=== PATIENT | male | born 1930 | race Caucasian/White ===

== ENCOUNTER 2016-12-01 15:25 | Observation (INO) | payer MEDICARE, OTHER ==
--- NOTE | ~2016-12-01 | DS ---
Discharge Summary [facility] [address] [place]. [address] NAME: LI CLINE : 29 STATUS : DIS Earlene PAT#: [id number] AGE: 86 ADM/REG DATE : 12/01/16 MR#: [id number] REPORT SERV DATE: 12/03/16 DICTATED BY: FRANCK ZHAO DATE: 12/02/16 REPORT STATUS : Draft TRANSCRIBED BY: MODL DATE: 12/02/16 ADMISSION DATE: 12/01/2016 DISCHARGE DATE: 12/02/2016 DISCHARGE DIAGNOSES: 1. Community-acquired pneumonia. 2. Unintentional weight loss related to poor appetite. 3. Hypertension. 4. Prostate cancer. 5. Gastroesophageal reflux disease. 6. Remote history of smoking. CONSULTANTS: None. PROCEDURES: None. HOSPITAL COURSE: This is an 86-year-old gentleman who was directly admitted to our facility after a failed outpatient therapy of community-acquired pneumonia. For details, please refer to my own H and P. Although it appears the patient has been suffering quite a bit as an outpatient, by the time, the patient was admitted to the hospital, it appears that the patient was actually already getting better with the antibiotics that he has been taking as an outpatient. The patient was on room air, and at the patient's initial admission, white blood cell count was only 12,000. The patient also had stable vital signs and no evidence of sepsis. The patient was simply monitored overnight, and overnight, the patient's white blood cell count had normalized to 8000. The patient will remain on room air and really did not even require much breathing treatments. The patient is thus being discharged to home with a course of Levaquin as well as albuterol inhaler. Also, at admission, the patient reported of unintentional weight loss over the past two months. This was particularly concerning for potential cancer and CT of the chest, abdomen, and pelvis was performed. CT of the chest revealed a right lower lobe pneumonia and it also showed a discrete subpleural noncalcified nodules that were likely inflammatory in nature. Otherwise, the patient did not have any obvious lesions concerning for malignancy. The patient will need to follow up with his PCP and have a repeat CT of the chest a few weeks to months down the road after the right lower lobe infiltrate have cleared for further evaluation. Otherwise, the patient remained hemodynamically stable throughout the hospital stay and there was no other obvious complication. DISCHARGE DISPOSITION: Home. DISCHARGE MEDICATIONS: 1. Levaquin 750 mg p.o. daily x3 additional days. 2. Albuterol inhaler q.4 hours p.r.n. 3. Otherwise, no medication changes. Discharge Summary [address] [address] NAME: LI CLINE : 29 STATUS : DIS Earlene PAT#: [id number] AGE: 86 ADM/REG DATE : 12/01/16 MR#: [id number] REPORT SERV DATE: 12/03/16 DICTATED BY: FRANCK ZHAO DATE: 12/02/16 REPORT STATUS : Draft TRANSCRIBED BY: YANIRA DATE: 12/02/16 FOLLOWUP: Please follow up with PCP in the next one to two weeks. A total of 25 minutes spent in coordinating this patient's discharge today. DICTATED BY: MD CURT Leblanc/YANIRA Franck Zhao MD / [id number] CC: MD Ying Leblanc M.D.
--- NOTE | ~2016-12-01 | HP ---
History And Physical [place] [id number] [facility] [place]. [address] NAME: LI CLINE : 29 STATUS : ADM IN [facility]#: [id number] AGE: 86 ADM/REG DATE : 12/01/16 MR#: [id number] REPORT SERV DATE: 12/01/16 DICTATED BY: FRANCK ZHAO DATE: 12/01/16 REPORT STATUS : Draft TRANSCRIBED BY: MODL DATE: 12/01/16 DATE OF ADMISSION: 12/01/2016 CHIEF COMPLAINT: Shortness of breath. HISTORY OF PRESENT ILLNESS: This is an 86-year-old gentleman with history of hypertension, GERD, and prostate cancer presenting with a shortness of breath. The patient reports that he apparently got sick about 10 days ago after having worked in the garden. The patient thought it was related to pollens, and he did see a physician at a walk-in clinic, who agreed and treated him symptomatically. Over the past week or so, the patient unfortunately continued to get sick with shortness of breath. The patient was seen by his PCP's nurse practitioner, who prescribed him doxycycline. The patient reports that he unfortunately continued to decline on p.o. doxycycline. The patient had episodic significant shortness of breath and had limited range of ambulation due to the shortness of breath. The patient also reports that he has had subjective fevers with chills and episodes of night sweats. Also, on further questioning, the patient reports that he has lost about 30 pounds over the past two months unintentionally, mainly related to having had poor p.o. intake due to poor appetite. The patient was seen in the PCPs office today, and he was subsequently referred for direct admission for higher level of care. From my encounter with the patient, the patient was seen to be very comfortable on room air, and he is able to speak in full sentences without getting any short of breath. The patient actually looks very healthy, and the patient is also extremely strong on physical examination. The patient does not have any additional acute complaints. REVIEW OF SYSTEMS: The patient did have subjective fevers with chills. Otherwise, 14-point review of systems reviewed and negative other than mentioned above. MEDICATIONS: 1. Doxycycline 100 mg p.o. b.i.d. x7 days, which the therapy was started couple of days ago. 2. Aspirin 81 mg p.o. daily. 3. Mucinex 600 mg p.o. b.i.d. 4. Lisinopril 5 mg p.o. b.i.d. 5. Singulair 10 mg p.o. daily p.r.n. 6. Prilosec 20 mg p.o. b.i.d. 7. Florastor 250 mg p.o. b.i.d. 8. Mckean nasal spray two to three sprays nasally daily. ALLERGIES: NKDA. PAST MEDICAL HISTORY: 1. Hypertension. 2. Prostate cancer, status post TURP. 3. GERD. History And Physical [address] [address] NAME: LI CLINE : 29 STATUS : ADM IN [facility]#: [id number] AGE: 86 ADM/REG DATE : 12/01/16 MR#: [id number] REPORT SERV DATE: 12/01/16 DICTATED BY: FRANCK ZHAO DATE: 12/01/16 REPORT STATUS : Draft TRANSCRIBED BY: YANIRA DATE: 12/01/16 PAST SURGICAL HISTORY: 1. Hernia repairs. 2. Stomach surgery for a stomach ulcer in the past. 3. Knee replacement. FAMILY HISTORY: Negative and non-pertinent, especially at the age of 86. SOCIAL HISTORY: The patient has smoked in the remote past, but has not smoked since . The patient also has been a strong drinker in the past, but has not had much drink over the past few years. The patient lives at home with his and the patient's daughter and granddaughter are at bedside here in the ER. PHYSICAL EXAMINATION: VITAL SIGNS: Temperature 96.9, blood pressure 156/71, pulse 71, respiratory rate is 18, saturating 99% on room air. NEUROLOGIC: The patient is alert and oriented x3 with no focal neurologic deficits. GENERAL: The patient is awake, does not appear to be in acute distress, and he is cooperative. NECK: No JVD. No lymphadenopathy. Normal thyroid. CHEST: No midline sternotomy scar and no tenderness to palpation. LUNGS: Actually very clear to auscultation bilaterally and I do not hear any rhonchi. The patient also has normal respiratory effort on room air, and he is able to speak in full sentences without getting any short of breath on room air. CARDIOVASCULAR: Regular rate and rhythm with no murmurs, rubs, or gallops, and PMI is nondisplaced. ABDOMEN: Soft, nontender, with active bowel sounds and no organomegaly. EXTREMITIES: No edema. Normal distal pulses. No calf tenderness. SKIN: Clean, dry, warm, and intact. LABORATORY DATA: Labs are pending. Chest x-ray was reportedly showing pneumonia per my conversation with the patient's PCP's nurse practitioner, but I do not have any images to evaluate myself. ASSESSMENT: This is an 86-year-old gentleman with history of hypertension, gastroesophageal reflux disease, and prostate cancer presenting with a possible pneumonia, status post failed outpatient therapy. 1. Reported finding of pneumonia on outpatient chest x-ray, status post failed outpatient therapy. However, the patient appears very stable and he looks very comfortable on room air. 2. Unintentional weight loss of 30 pounds over the past two months related to poor appetite and poor p.o. intake. 3. Hypertension. 4. Prostate cancer. 5. Gastroesophageal reflux disease. 6. History of smoking in the remote past. History And Physical [address] [address] NAME: LI CLINE : 29 STATUS : ADM IN [facility]#: [id number] AGE: 86 ADM/REG DATE : 12/01/16 MR#: [id number] REPORT SERV DATE: 12/01/16 DICTATED BY: FRANCK ZHAO DATE: 12/01/16 REPORT STATUS : Draft TRANSCRIBED BY: YANIRA DATE: 12/01/16 PLAN: My plan is to admit the patient under observation overnight. The patient will be monitored under telemetry. The patient will be started on IV Levaquin, and I will complete infectious workup with checking of blood cultures, sputum cultures, procalcitonin level as well as urinary antigens for Strep and Legionella. I will also go ahead and check his labs to include CBC, electrolytes, TSH, and pre-albumin. The patient will also be given breathing treatments as needed. For the unintentional weight loss, I would like to go ahead and check CT of the chest, abdomen, and pelvis to rule out any potential malignancy given his history of smoking also. Otherwise, for the rest of stable past medical conditions including hypertension, I will continue home medications. Standard DVT prophylaxis. The patient is full code at this time. YSLydia/MODL Franck Zhao MD / [id number] CC: MD Ying Leblanc M.D.
[~2016-12-01 15:25] MED LIST: ASAB PO; PRILO PO; PRIN5 PO; SINGULAIR1 PO
[2016-12-01] MEDS ORDERED: MONODOX100 MG PO (16:23)
[2016-12-01] MEDS ORDERED: PRIN5 PO (16:24)
[2016-12-01] MEDS ORDERED: PRILO PO (16:25)
[2016-12-01] MEDS ORDERED: FLORASTOR250 MG PO (16:26)
[2016-12-01] MEDS ORDERED: SINGULAIR1 PO (16:26)
[2016-12-01] MEDS ORDERED: ASAB PO (16:27)
[2016-12-01] MEDS ORDERED: MUCINEX600 MG PO (16:27)
[2016-12-01] MEDS ORDERED: OCEAN NAS (16:29)
[2016-12-01 18:03] LABS: BASOPHILS 0.2 %; BASOPHILS ABSOLUTE 0.02 10/3/uL (0.0-0.16); EOSINOPHILS 0.8 %; HEMATOCRIT 39.2 % (40.0-51.0); HEMOGLOBIN 13.4 g/dL (13.6-17.8); IMMATURE GRANULOCYTES 1.4 %; IMMATURE GRANULOCYTES ABSOLUTE 0.17 10/3/uL (0.0-0.11); LYMPHOCYTES ABSOLUTE 0.74 10/3/uL (0.67-4.30); MEAN CORPUS HGB CONC 34.2 g/dL (32.0-36.0); MEAN CORPUSCULAR HEMOGLOB 29.6 pg (26.0-34.0); MEAN CORPUSCULAR VOLUME 86.7 fL (80-100); MEAN PLATELET VOLUME 11.5 fL (9.2-13.0); MONOCYTES ABSOLUTE 0.98 10/3/uL (0.21-1.20); NEUTROPHILS 83.6 %; NEUTROPHILS ABSOLUTE 10.26 10/3/uL (2.02-8.40); PLATELET COUNT 324 10/3/uL (150-400); RBC DISTRIBUTION WIDTH 13.8 % (12.0-16.0); RED CELL COUNT 4.52 10/6/uL (4.7-6.1); WHITE BLOOD CELLS 12.3 10/3/uL (4.5-10.5)
[2016-12-01 18:04] LABS: MANUAL DIFF NO %
[2016-12-01 18:25] LABS: A/G RATIO 0.6 (0.7-1.9); ALBUMIN 2.5 G/DL (3.5-5.0); ALKALINE PHOSPHATASE 137 U/L (45-117); BUN (BLOOD UREA NITROGEN) 30 MG/DL (6-23); CHLORIDE, SERUM 105 MMOL/L (96-112); CO2 (CARBON DIOXIDE) 28 MMOL/L (24-34); CREATININE 1.04 MG/DL (0.70-1.30); GFR AFRICAN AMERICAN 74 ML/MIN (>=60); GFR NON AFRICAN AMERICAN 64 ML/MIN (>=60); GLOBULIN 4.2 G/DL (2.5-4.1); GLUCOSE, SERUM 115 MG/DL (60-99); POTASSIUM, SERUM 4.2 MMOL/L (3.5-5.3); SGOT(AST) 43 U/L (5-40); SGPT(ALT) 51 U/L (5-65); SODIUM, SERUM 138 MMOL/L (135-148); TOTAL BILIRUBIN 1.1 MG/DL (0-1.2); TOTAL PROTEIN 6.7 G/DL (6.0-8.5); ULTRASENSITIVE TSH 0.449 MCIU/ML (0.358-3.740)
[2016-12-01 18:29] LABS: PREALBUMIN 5.8 MG/DL (17.0-43.0)
[2016-12-01 18:52] LABS: PROCALCITONIN 0.28 ng/mL (<0.5)
[2016-12-02 04:30] LABS: BASOPHILS 0.2 %; BASOPHILS ABSOLUTE 0.02 10/3/uL (0.0-0.16); EOSINOPHILS 3.7 %; EOSINOPHILS ABSOLUTE 0.35 10/3/uL (0.0-0.53); HEMOGLOBIN 11.7 g/dL (13.6-17.8); IMMATURE GRANULOCYTES 1.1 %; LYMPHOCYTES ABSOLUTE 1.13 10/3/uL (0.67-4.30); MEAN CORPUS HGB CONC 33.6 g/dL (32.0-36.0); MEAN CORPUSCULAR HEMOGLOB 29.6 pg (26.0-34.0); MEAN CORPUSCULAR VOLUME 88.1 fL (80-100); MEAN PLATELET VOLUME 11.3 fL (9.2-13.0); MONOCYTES 7.4 %; NEUTROPHILS 75.6 %; NEUTROPHILS ABSOLUTE 7.12 10/3/uL (2.02-8.40); PLATELET COUNT 279 10/3/uL (150-400); RBC DISTRIBUTION WIDTH 13.6 % (12.0-16.0); RED CELL COUNT 3.95 10/6/uL (4.7-6.1); WHITE BLOOD CELLS 9.4 10/3/uL (4.5-10.5)
[2016-12-02 04:32] LABS: HEMATOCRIT 34.8 % (40.0-51.0); MANUAL DIFF NO %
[2016-12-02 04:46] LABS: BUN (BLOOD UREA NITROGEN) 29 MG/DL (6-23); CALCIUM, SERUM 8.1 MG/DL (8.5-10.4); CHLORIDE, SERUM 110 MMOL/L (96-112); CO2 (CARBON DIOXIDE) 25 MMOL/L (24-34); CREATININE 0.89 MG/DL (0.70-1.30); GFR AFRICAN AMERICAN 89 ML/MIN (>=60); GFR NON AFRICAN AMERICAN 77 ML/MIN (>=60); GLUCOSE, SERUM 102 MG/DL (60-99); POTASSIUM, SERUM 4.3 MMOL/L (3.5-5.3); SODIUM, SERUM 140 MMOL/L (135-148)
[2016-12-02] MEDS ORDERED: LEVAQUIN750 MG PO (15:14)
[2016-12-02] MEDS ORDERED: PROAIR HFA INH (15:15)
== END 2016-12-02 18:14 | disposition home or self-care (01) ==
LOC: 6NO 15:25
PROVIDERS: Internal Medicine
DX: J18.9 Pneumonia, unspecified organism (principal); I10 Essential (primary) hypertension; C61 Malignant neoplasm of prostate; K21.9 Gastro-esophageal reflux disease without esophagitis; R63.4 Abnormal weight loss; Z79.82 Long term (current) use of aspirin; Z90.79 Acquired absence of other genital organ(s)
CPT/HCPCS: 71250; 74176; 80048; 80053; 84134; 84145; 84443; 85025; 87040; 87449; 96372; 96374; 96376; A9270-GY; G0378; J1956